=== PATIENT | male | born 1955 | race Caucasian/White ===

== ENCOUNTER 2018-11-29 21:38 | Emergency (ER) | payer MEDICARE, BC ==
[2018-11-29 21:48] VITALS: BP 158/92
--- NOTE | 2018-11-29 21:56 | UC ---
Skin Complaint HPI - HPI Summary HPI Summary: scraped left steve 10 days ago has redness at site of injury and poor healing and purulent drainage - History of Current Complaint Chief Complaint: [facility] Time Seen by Provider: 11/29/18 21:51 Stated Complaint: SORE ON LEG Hx Obtained From: Patient Onset/Duration: Sudden Onset, Lasting Days - 10, Still Present Timing: Constant Pain Intensity: 2 Pain Scale Used: 0-10 Numeric Location: Discrete Character: Redness Aggravating Factor(s): Nothing Alleviating Factor(s): Nothing Associated Signs & Symptoms: Positive: Negative, Rash Related History: Trauma - Allergy/Home Medications Allergies/Adverse Reactions: Allergies Allergy/AdvReac Type Severity Reaction Status Date / Time No Known Allergies Allergy Verified 11/29/18 21:49 Home Medications: Home Medications Naproxen Sodium [Aleve] 440 mg PO BID 11/29/18 [History Confirmed 11/29/18] PMH/Surg Hx/FS Hx/Imm Hx Endocrine History: Dyslipidemia - Surgical History Surgical History: Yes Surgery Procedure, Year, and Place: melanoma removal - Family History Known Family History: Positive: None - Social History Occupation: Employed Full-time Lives: With Family Alcohol Use: None Substance Use Type: None Smoking Status (MU): Never Smoked Tobacco Review of Systems All Other Systems Reviewed And Are Negative: Yes Constitutional: Positive: Negative Skin: Positive: Other - worsening erythema and no healing on left steve at site of a scrap 10 days ago Eyes: Positive: Negative ENT: Positive: Negative Respiratory: Positive: Negative Cardiovascular: Positive: Negative Gastrointestinal: Positive: Negative Genitourinary: Positive: Negative Motor: Positive: Negative Neurovascular: Positive: Negative Musculoskeletal: Positive: Negative Neurological: Positive: Negative Psychological: Positive: Negative Is Patient Immunocompromised?: No Physical Exam Triage Information Reviewed: Yes Appearance: Well-Appearing, No Pain Distress, Well-Nourished Vital Signs: Initial Vital Signs Temp 98.1 F 11/29/18 21:45 Pulse 66 11/29/18 21:45 Resp 16 11/29/18 21:45 BP 158/92 11/29/18 21:45 Pulse Ox 99 11/29/18 21:45 Vital Signs Reviewed: Yes Eye Exam: Normal Eyes: Positive: Conjunctiva Clear ENT Exam: Normal ENT: Positive: Normal ENT inspection, Hearing grossly normal, Pharynx normal. Negative: Trismus, Muffled voice, Hoarse voice Dental Exam: Normal Neck exam: Normal Neck: Positive: Supple, Nontender Respiratory Exam: Normal Respiratory: Positive: Chest non-tender, Lungs clear, No respiratory distress, No accessory muscle use Cardiovascular Exam: Normal Cardiovascular: Positive: RRR, Pulses Normal, Brisk Capillary Refill Musculoskeletal Exam: Normal Musculoskeletal: Positive: Strength Intact, ROM Intact, No Edema Neurological Exam: Normal Neurological: Positive: Alert, Muscle Tone Normal Psychological Exam: Normal Psychological: Positive: Normal Response To Family Skin: Positive: Other - anterior left steve with erythema and scraped skin wound approxentry 2 cm wide 4 cm long Course/Dx - Course Course Of Treatment: mild soap and water wash qd, avoid ointments to wound and tape on skin---warm soaks bactrim follow with Pcp this week - Diagnoses Provider Diagnosis: Injury of left steve, Hypertension Discharge - Sign-Out/Discharge Documenting (check all that apply): Patient Departure All imaging exams completed and their final reports reviewed: No Studies - Discharge Plan Condition: Stable Disposition: HOME Prescriptions: Sulfamethox/Trimethoprim DS* [Bactrim DS 800/160 TAB*] 1 tab PO BID #13 tab Patient Education Materials: Cellulitis (ED), Acute Wound Care (ED), Hypertension (ED), Warm Compress or Soak (ED) Referrals: Yoni Crump MD [Primary Care Provider] - 3 Days - Billing Disposition and Condition Condition: STABLE Disposition: Home
[2018-11-29] MEDS ORDERED: Mupirocin 2% OINT* TUBE TOPICAL ONE (21:58)
[2018-11-29] MEDS ORDERED: Sulfamethox/Trimethoprim DS 800/160* TAB PO ONE (21:59)
== END 2018-11-29 22:28 | disposition home or self-care (01) ==
LOC: UCEAST 21:38
DX: S80.812A Abrasion, left lower leg, initial encounter (principal); X58.XXXA Exposure to other specified factors, initial encounter; Y92.9 Unspecified place or not applicable
CPT/HCPCS: 99213; A9270-GY; G0463